=== PATIENT | female | born 1990 ===

== ENCOUNTER 2018-08-06 14:55 | Inpatient (IN) | payer OTHER ==
[2018-08-06] MEDS ORDERED: Lactated Ringer's 1,000 ML IV ONE (16:09)
[2018-08-06] MEDS ORDERED: Lactated Ringer's 1,000 ML IV SCH (16:15)
[2018-08-06] MEDS ORDERED: Penicillin G 5 Million Unit Vial IVPB ONE (16:24)
[2018-08-06 17:09] LABS: BASO % 0.2 % (0.0-2.0); EOS # 0.1 K/uL (0.0-0.7); EOS % 0.7 % (0.0-4.0); LYMPH # 1.6 K/uL (1.0-4.3); LYMPH % 15.2 % (20.0-40.0); MEAN CELL VOLUME 85.1 fl (81.0-99.0); MEAN CORPUSCULAR HEMOGLOBIN 28.6 pg (27.0-31.0); MEAN CORPUSCULAR HGB CONC 33.6 g/dL (33.0-37.0); MEAN PLATELET VOLUME 9.8 fl (7.2-11.7); MONO # 0.9 K/uL (0.0-0.8); MONO % 8.3 % (0.0-10.0); NEUT % 75.6 % (50.0-75.0); RBC 4.18 Mil/uL (3.80-5.20); RED CELL DISTRIBUTION WIDTH 14.7 % (11.5-14.5); WHITE BLOOD COUNT 10.6 K/uL (4.8-10.8)
--- NOTE | 2018-08-06 17:55 | OBHP ---
Datetime: 08/06/2018 16:08 Pelvic Type - PN: Adequate Extremities - PN: Normal Abdomen - PN: Normal Back - PN: Not Done Breast - PN: Not Done Lungs - PN: Normal Heart - PN: Normal Thyroid - PN: Not Done Neurologic - PN: Normal HEENT - PN: Normal General - PN: Normal FHR - Baseline A Provider: 125 EGA AdmitDate IP: 40.3 Vital Signs Provider: Reviewed; Within Normal Limits IP Chief Complaint: Suspected ruptured membranes NICHD Variability Prov Fetus A: Moderate 6-25bpm NICHD Accel Fetus A IP Provider: 15X15 FHR Category Provider Fetus A: Category I Genitourinary Exam: Normal DTRs - PN: Not Done Datetime: 08/06/2018 15:59 IP Adm Impression: Term, intrauterine ; No Active Labor; Ruptured Membranes IP Adm Impression Other: GBS+ IP Admit Plan: Admit to unit IP Admit Plan Other: IV Abx Admit Comment, IP Provider: CC: ROM HPI: 27 YO @ 40.3wks IUP presents to [facility] for ROM. Pt states that around 2:30 PM today she fe lt a large gush of fluid per vagina. Initially there was some blood in the fluid but since onset then it has been clear white. Mild abdominal pain 15 mins prior to presentation, irregular. +LOF, +FM, -V B, +Ctx. Voyce used for partial translation [id number] ROS: Denies chest pain, dyspnea, palpatations, abdominal pain, n/v/d/c, chills, fever. MD: Charles Maxwell HIV neg, RPR neg, O+ ab neg, GBS pos. ObHx: primigravida GynHx: Denies STIs, normal pap PMHx: denies SurgHx: R chest tube as a child Fhx: denies SH: denies ETOH, smoking and illicit drug use Allergies: NKDA Meds: none PE VS wnl Gen: NAD, happy HEENT: no pallor, sclera non-ictheric H: S1S2 no additional heart sounds L: clear breath sounds b/l A: gravid, NT, BS+ N: AAOx3 E: mild non-pitting edema Cervx: Pooling+, clear, 2-3cm (int, ext 3-4) /40/-3 FM: 125, catagory I Bedside U/S: vertex A/P: 27 YO @ 40.3wks IUP is admitted for ROM, early labor. -admit to l_D for ROM -start Pen G 5/2.5 -enema, water and soap -cont FM -continue to manage the progression of labor Case discussed with attending Dr. Jacobo Pelayo, [facility]Y II [facility]. With PGY2 I saw this patient. Agree with note. Discusson with patient ab out labor, GBS+, latent phase of labor, medicatoins, augmentation, pain managment, delivery and postp artum...will give PCN IV and observe labor progress Presentation-Admit: Vertex Amniotic Fluid Color, Provider: Clear Membranes, Provider: Ruptured Pool Provider: Positive NICHD Decel Fetus A IP Provider: None Dilatation, Provider: 2-3 Effacement, Provider: 70 Station, Provider: -3
[2018-08-06] MEDS ORDERED: Oxytocin 30 UNIT 30 UNITS/500 ML BAG IV ONE (22:53)
--- NOTE | 2018-08-06 22:57 | OBPN ---
Datetime: 08/06/2018 22:50 IP Progress Impression: Reassuring heart rate IP Informed Consent Obtain: Vaginal Delivery IP Progress Plan: Augmentation; Anticipate Vaginal Delivery Pool Provider: Positive Membranes, Provider: Ruptured Amniotic Fluid Color, Provider: Clear Contraction Comments Provider: occ FHR - Baseline A Provider: 120 IP Fetus A Comments: sono cephalic - confirmed Presentation-Admit: Vertex IP Progress Note Comment: She started to feel stronger CTX 1h ago. She feels CTX q 5m. A: Latnet phase of labor PLAN: discussion about labor and augmentatoin...she agreed...start Pitoci n augmentation NICHD Accel Fetus A IP Provider: 15X15 FHR Category Provider Fetus A: Category I NICHD Variability Prov Fetus A: Moderate 6-25bpm Dilatation, Provider: 3 Effacement, Provider: 80 Station, Provider: -2 NICHD Decel Fetus A IP Provider: None Datetime: 08/06/2018 16:08 Vital Signs Provider: Reviewed; Within Normal Limits
--- NOTE | 2018-08-07 00:58 | OBHP ---
Datetime: 08/07/2018 00:51 Admit Comment, IP Provider: Labs rev'd...plan for dishcarge dx gastroenteritis...pt wanted to discus s situation and dsrie to be induced. In her current situatoin she had to finish school, get a job, h elp her financially and bring her family from [place]. I explained to her there is no medical indication for IOL. She was upset and said that she was coming back everyday until she got delivered . I explained to her labor precautions and medical indications for IOL. She feels +FM and no CTX pa in currently. For her N/V I offered Zofran IV. Otherwise she was cleared medically for discharge. She was advised to follow up with [facility] within the week. Will finish IVF and discharge latisha e Datetime: 08/06/2018 22:50 Presentation-Admit: Vertex IP Fetus A Comments: sono cephalic - confirmed FHR - Baseline A Provider: 120 Amniotic Fluid Color, Provider: Clear Membranes, Provider: Ruptured Contraction Comments Provider: occ Pool Provider: Positive NICHD Variability Prov Fetus A: Moderate 6-25bpm NICHD Accel Fetus A IP Provider: 15X15 FHR Category Provider Fetus A: Category I NICHD Decel Fetus A IP Provider: None Dilatation, Provider: 3 Effacement, Provider: 80 Station, Provider: -2 Datetime: 08/06/2018 16:08 EGA AdmitDate IP: 40.3
[2018-08-07] MEDS ORDERED: Fentanyl/Bupivacaine HCl 250 ML EPI ONE (03:07)
[2018-08-07] MEDS: Lactated Ringer's 1,000 ML IV SCH ×2 (04:30→12:45)
[2018-08-07] MEDS ORDERED: Oxytocin 30 UNIT 30 UNITS/500 ML BAG IV ONE ×2 (08:14→12:29)
[2018-08-07] MEDS ORDERED: OXYTOCIN/0.9 % NS 20 UNIT/1,000 ML BAG IV SCH (08:15)
[2018-08-07] MEDS ORDERED: Lidocaine 2% PF (10 ml) Amp ONE (12:13)
--- NOTE | 2018-08-07 12:57 | OBPN ---
Datetime: 08/07/2018 11:50 IP Progress Impression: Normal progression of labor; Reassuring heart rate IP Progress Plan: Anticipate Vaginal Delivery FHR - Baseline A Provider: 130 IP Progress Note Comment: S: 27 yo with IUP @ 40.3 presented for ROM. Patient is in notable dis comfort but is not in distress. O: V/S: stable FHT: Baseline 130; Moderate variability; Accelerations are present. No decelerations. Contractions every 4-5 minutes. Category 1 tracing. Vaginal exam preformed with Nail Making Machine Setter Nurse, cervix is 9/100/0. Patient in notable discomfort on e xam. Medications: Pitocin @12 mU/ minute ; Epidural placed at 23:23. Assesesment: 27 yo with IUP @ 40.3 presented for ROM, is now in active labor. Plan: - FHT reassuring- category 1 - Observe labor progression with Pitocin - GBS+, patient has been given 4 doses of PCN 5/2.5 U. (last dose at 09:00) - Anticipate vaginal delivery. Case discussed with Dr. Torres --Ibis Fernandez, PGY-1 Family medicine. Addendum by Dr. Torres: I have evaluated the patient independently and I agree with the above NICHD Accel Fetus A IP Provider: 15X15 FHR Category Provider Fetus A: Category I NICHD Variability Prov Fetus A: Moderate 6-25bpm Dilatation, Provider: 9 Effacement, Provider: 100 Station, Provider: 0 NICHD Decel Fetus A IP Provider: None Datetime: 08/07/2018 08:09 Vital Signs Provider: Reviewed; Within Normal Limits
[2018-08-07] MEDS ORDERED: Oxycodone/Acetaminophen 5/325 mg Tab PO PRN ×4 (16:27→19:36)
[2018-08-07] MEDS ORDERED: Benzocaine/Menthol SPRAY TOP PRN ×2 (16:27→19:36)
--- NOTE | 2018-08-07 16:28 | OBDS ---
DELIVERY PERSONNEL Delivery Doctor: Arvin Torres MD Otr Owner Operator Truck Driver: Sultana Lezama Resident: Dr Cota MATERNAL INFORMATION Delivery Anesthesia: Epidural Medications in Delivery: Pitocin Estimated Blood Loss (ml): 200 Placenta Cultured: No Maternal Complications: None Provider Comments: of live female infant over intact perineum in OA presentation, 8lbs 2oz, 07/09 , shoulder dystocia less than a minute relieved with suprapubic pressure and Jim procedure, cor d clamped and cut, infant placed in warmer, pediatric evaluation, placenta delivered spontaneously, f undus firm, [id number], first degree laceration repaired with 2-0 Vicryl rapide, pt otherwise tolerate d procedure well LABOR SUMMARY EDC: 08/03/2018 00:00 No. Babies in Womb: 1 Attempted: No Labor Anesthesia: Epidural LABOR INFORMATION Reason for Induction: Not Applicable Onset of Labor: 08/06/2018 14:00 Complete Dilatation: 08/07/2018 14:30 Oxytocin: Augmentation Group B Beta Strep: Positive Antibiotics # of Doses: Pen G 5million units / Mat 2.5 million units Antibiotics Time of Last Dose: 1627// 2100;0105;0502;0900;1305 Steroids Given: None Reason Steroids Not Administered: Not Applicable MEMBRANES Membranes Rupture Method: Spontaneous Rupture of Membranes: 08/06/2018 14:30 Amniotic Fluid Color: Clear Amniotic Fluid Amount: Moderate Amniotic Fluid Odor: Normal STAGES OF LABOR Stage 1 hrs: 24 Stage 1 min: 30 VAGINAL DELIVERY Episiotomy: None Laceration Extension: First Degree Laceration Repair: Yes BABY A INFORMATION Born in Route : No : N/A Forceps: N/A Vacuum Extraction: N/A Shoulder Dystocia : No INFANT INFORMATION BABY A Gestational Age at Delivery: 40.4 Gestational Status: Post-term IDENTIFICATION/MEDS BABY A ID Band Number: [id number]
[2018-08-08 05:24] LABS: BASO % 0.1 % (0.0-2.0); EOS % 0.2 % (0.0-4.0); HEMOGLOBIN 9.2 g/dL (12.0-16.0); LYMPH # 2.3 K/uL (1.0-4.3); LYMPH % 11.9 % (20.0-40.0); MEAN CELL VOLUME 84.7 fl (81.0-99.0); MEAN CORPUSCULAR HEMOGLOBIN 28.8 pg (27.0-31.0); MEAN CORPUSCULAR HGB CONC 34.1 g/dL (33.0-37.0); MEAN PLATELET VOLUME 9.5 fl (7.2-11.7); MONO # 1.5 K/uL (0.0-0.8); MONO % 7.6 % (0.0-10.0); NEUT # 15.9 K/uL (1.8-7.0); NEUT % 80.2 % (50.0-75.0); RBC 3.2 Mil/uL (3.80-5.20); RED CELL DISTRIBUTION WIDTH 14.7 % (11.5-14.5); WHITE BLOOD COUNT 19.8 K/uL (4.8-10.8)
[2018-08-08] MEDS: Multivitamin With Minerals Tab PO SCH (08:21)
[2018-08-08] MEDS ORDERED: Multivitamin With Minerals Tab PO SCH (09:00)
--- NOTE | 2018-08-08 10:46 | OBPPN ---
Datetime: 08/08/2018 05:33 PP Pain Prov: Within normal limits PP Nausea Prov: Denies PP Flatus Prov: Yes PP BM Prov: No PP Breasts Prov: Not Done PP Heart Prov: Normal PP Lungs Prov: Normal PP Abdomen/Uterus Prov: Normal PP Lochia Prov: Normal PP Vulva/Perineum Prov: Not Done PP CVA Tenderness Prov: Not Done PP Extremities Prov: Normal PP C/S Incision Prov: Not Applicable PP Progress Prov: Normal PP Impression Prov: Normal progression PP Plan Prov: Continue present management PP Progress Note Prov: S: 27 yo s/p NVD on 08/07/2018 at 16:08. [facility]. No significant overnight events. Pt reports occasional abdominal pain, but well contro lled with pain meds. Pt is ambulating without any difficulties. Breast and bottle feeding baby. Eun ating PO diet. Lochia is similar to light menses in volume. Voiding freely, no bowel movement, but pa ssing gas per rectum. Denies fever, chills, diarrhea, nausea, vomiting, chest pain, dyspnea, and dizz iness. O: VS: stable GEN: NAD Cardio: S1S2, no M/G/R Resp: clear breath sounds b/l Abdomen: BS+, NT, Uterus is firm and at the level of the umbilicus. EXT: No edema, calves non-tender NEURO/PSYCHI: AAOx3, no grossly focal deficit, preserved affect and mood. Assessment: 27 yo s/p NVD on 08/07/2018 at 16:08. Pt remains afebrile, tolerating pain with m edication, tolerating PO intake, doing well on PPD 1. OOB with caution. Plan: -Patient ambulating -Tolerating regular diet -Ibuprofen 600mg for pain. -Colace 100mg PO BID/Senokot 17.2 mg qHS for constipation -Encourage and ambulating -F/u CBC post-delivery: pending -Anticipated d/c to home 08/09/2018. Case discussed with Dr. Kenney --- Evelyne Florez MD PGY1 [facility] Family Medicine OB Hospitalist note: Pt seen on ronds this AM. She feels fine. benjamín BAILEY PP Procedures: None Vital Signs Provider PP: Reviewed; Within Normal Limits
[2018-08-09] MEDS: Multivitamin With Minerals Tab PO SCH (07:59)
--- NOTE | 2018-08-09 11:08 | OBDCSUM ---
Datetime: 08/09/2018 05:56 Discharged to, Provider: Home Follow up at, Provider: Charles Amaya Instr Activity: Normal activity Disch Instr Diet: Regular Discharge Instructions, Provider: Routine instructions given Discharge Diagnosis, Provider: Term Delivered Discharge Time: 08/09/2018 09:00 Follow up in weeks, Provider: 6 weeks Disch Referrals: None Disch Activity Restrictions: No exercising; No lifting; Minimize stair-climbing; No sexual activity; Nothing in vagina - [place], tampons, douche Discharge Comment, Provider: DOA: 08/06/2018 EGA: 40.3 Diagnosis: NVD Term Risk factors: GBS + Summary of : 27 yo F presented on 08/06/18 at 40.3 weeks with ROM and was admitted fo r ROM/early active labor. GBS + but no further complications. L_D summary NVD on 08/07/2018 at 16:08 NB: Male, Weight: 3695g : 910 PP summary No serious complications during . Patient reports that lochia is similar to menses and s he has mild lower abdominal pain but is well controlled with Ibuprophen. Rubella immune Blood type: O+, antibody negative CBC pp: Hg/Hct 9.2/27.1 Discharge Date: 08/09/2018 Time 10:00 AM Discharge Instructions: -Encourage -Ibuprofen 600mg for pain PRN -Senokot 17.2 mg qHS for constipation -Ferrous Sulfate 325mg TID PO -Ambulate as tolerated, normal activity -No exercising or lifting, minimize stair climbing -Nothing per vagina/intercourse until cleared by OBGYN at visit -Follow-up NB visit 3-7 days w/ engineering manager electronics and PP visit 6 weeks with [facility] Case discussed with Dr. Centeno. --- Evelyne Florez, PGY1 [facility] Family Medicine The patient was seen with resident I agree with the note Contraception after Delivery: IUD
--- NOTE | 2018-08-09 11:08 | OBPPN ---
Datetime: 08/09/2018 05:21 PP Pain Prov: Within normal limits PP Nausea Prov: Denies PP Flatus Prov: Yes PP BM Prov: No PP Breasts Prov: Not Done PP Heart Prov: Normal PP Lungs Prov: Normal PP Abdomen/Uterus Prov: Normal PP Lochia Prov: Normal PP Vulva/Perineum Prov: Not Done PP CVA Tenderness Prov: Not Done PP Extremities Prov: Normal PP C/S Incision Prov: Not Applicable PP Progress Prov: Normal PP Impression Prov: Normal progression PP Plan Prov: Continue present management PP Progress Note Prov: S: 27 yo s/p NVD on 08/07/2018 at 16:08. Pt. is seen and examined at bed side this AM. No significant overnight events. Pt reports occasional abdominal pain, but well control led with pain meds. Pt is ambulating without any dizziness or difficulties. Breast and bottle feeding baby. Tolerating PO diet. Lochia is similar to menses in volume. Voiding freely, no bowel movement, but passing gas per rectum. Denies fever, chills, diarrhea, nausea, vomiting, chest pain, dyspnea, an d dizziness. O: VS: stable GEN: NAD Cardio: S1S2, no M/G/R Resp: clear breath sounds b/l Abdomen: BS+, NT, Uterus is firm and at the level of the umbilicus. EXT: No edema, calves non-tender NEURO/PSYCHI: AAOx3, no grossly focal deficit, preserved affect and mood. Assessment: 27 yo s/p NVD on 08/07/2018 at 16:08. Pt remains afebrile, tolerating pain with medication, tolerating PO intake, doing well on PPD2. OOB with caution Plan: Patient ambulating without difficulty or dizziness Pain control: Ibuprofen 600mg PRN Colace 100mg PO BID/Senokot 17.2 mg qHS for constipation Encourage CBC post-delivery: Hg/Hct 9.2/27.1 Anticipated d/c to home today, 08/09/2018. Case discussed with Dr Centeno. Evelyne Florez, PGY1 [facility] Family Medicine Patient was seen with resident I agree with the note IP PP Procedures: None Vital Signs Provider PP: Reviewed; Within Normal Limits
[2018-08-09 19:26] VITALS: BP 109/69; PULSE 90; RESP 19; TEMP 98.8; O2SAT 98
== END 2018-08-09 12:40 | disposition home or self-care (01) | DRG 373 ==
LOC: H.EROB2 14:55 → H.L&D 16:09 → H.OB/GYN 08-07 18:20
PROVIDERS: ADMIT Obstetrics & Gynecology; ATTEND Obstetrics & Gynecology
PROC: 4A1HXCZ Monitoring of Products of Conception, Cardiac Rate, External Approach (ICD-10-PCS; 2018-08-06)
PROC: 10E0XZZ Delivery of Products of Conception, External Approach (ICD-10-PCS; principal; 2018-08-07)
PROC: 0HQ9XZZ Repair Perineum Skin, External Approach (ICD-10-PCS; 2018-08-07)
DX: O99.824 Streptococcus B carrier state complicating childbirth (principal); O70.0 First degree perineal laceration during delivery; Z3A.40 40 weeks gestation of pregnancy; Z37.0 Single live birth; O66.8 Other specified obstructed labor